=== PATIENT | female | born 1935 | race Caucasian/White ===

== ENCOUNTER 2020-02-05 20:11 | Inpatient (IN) | payer MEDICARE, OTHER ==
[2020-02-05] MEDS ORDERED: methylPREDNISolone Sod Succ/PF 125 MG/2 ML VIAL ONE (20:28)
[2020-02-05] MEDS ORDERED: Magnesium 2 GM/50 ML BAG (IN WATER) ONE (20:28)
[2020-02-05] MEDS ORDERED: Albuterol Sulfate 2.5 mg/3 ml Neb ONE ×2 (20:35→20:36)
[2020-02-05 20:53] LABS: Actual Bicarbonate (HCO3a) 27.1 mEq/L (22-28); Analyzer IN Cardio ER; Base Excess (BEa) 0.2 mEq/L (-2.0 to +3.0); CO2 Tension 51.8 mmHg (35.0-45.0); Calcium, Ionized (arterial) 1.27 mmol/L (1.12-1.30); Carboxyhemoglobin (COHb) 0.3 gm% (0.0-3.0); Hemoglobin (Hb) 15.9 g/dL (12.0-16.0); O2 Tension (PaO2), arterial 162.6 mmHg (> 60.0); Potassium - ABG Lab 4.42 mmol/L (3.70-5.30); pH, Arterial 7.34 (7.35-7.45)
[2020-02-05 20:57] LABS: Puncture Site RR
[2020-02-05 21:13] LABS: #Basophils 0.1 thou/uL (0.0-0.2); #Eosinphils 0.1 thou/uL (0.0-0.7); #Lymphocytes 2.4 thou/uL (1.20-3.40); #Monocytes 0.9 thou/uL (0.11-0.59); #Neutrophils 11.2 thou/uL (1.40-6.50); %Basophils 0.5 % (0.0-1.0); %Eosinophils 0.4 % (0.0-10.0); %Lymphocytes 16.3 % (21.0-51.0); %Neutrophils 76.9 % (42.0-75.0); Hemoglobin 16.2 g/dL (12.0-16.0); Mean Corpuscular HGB CONC 33.1 g/dL (32.0-36.0); Mean Corpuscular Volume 93.6 fL (78.0-98.0); Mean Platelet Volume 7.7 fL (7.4-10.4); Platelet Count 272 thou/uL (130-400); RBC Distribution Width 12.8 % (11.5-14.5); Red Blood Cell (RBC) Count 5.22 mill/uL (4.20-5.40); White Blood Cell (WBC) Count 14.6 thou/uL (4.8-10.8)
--- NOTE | 2020-02-05 21:15 | RAD ---
Chest AP view INDICATION: Covid positive disease with hypoxia COMPARISON: None FINDINGS: Lungs: There is bilateral peripheral groundglass airspace opacities at right upper lobe left upper l obe and left lower lobe suspicious for pneumonia. Cardiac silhouette: There is mild cardiomegaly. Pulmonary vasculature: Normal Pleural spaces: No pleural effusion or pneumothorax is demonstrated. Upper abdomen: No abnormality seen. Osseous structures: There is scattered degenerative and osteoarthritic change present. Additional findings: There are calcified lymph nodes within both hilar regions. IMPRESSION: Bilateral pneumonia. Mild cardiomegaly.
[2020-02-05 21:29] LABS: ALT (SGPT) 49 U/L (8-55); AST (SGOT) 78 U/L (5-34); Albumin 3.4 g/dL (3.4-4.8); Alkaline Phosphatase 122 U/L (40-110); Anion Gap 18 mmol/L (10-20); BUN (Urea Nitrogen) 25 mg/dL (9.8-20.1); Bilirubin, Total 0.2 mg/dL (0.2-1.2); Calc. Creatinine Clearance 0 mL/min (70-130); Calcium 9.4 mg/dL (7.8-10.44); Carbon Dioxide 25 mmol/L (23-31); Chloride 96 mmol/L (98-107); Estimated GFR-MDRD 58; Globulin 4.9 g/dL (2.4-3.5); Glucose 219 mg/dL (83-110); Potassium 4.6 mmol/L (3.5-5.1); Protein, Total 8.3 g/dL (6.0-8.3); Sodium 134 mmol/L (136-145)
[2020-02-05] MEDS ORDERED: cefTRIAXone\\ROCEPHIN 2 GM VIAL ONE (21:33)
[2020-02-05] MEDS ORDERED: Azithromycin 500 MG VIAL ONE (21:33)
--- NOTE | 2020-02-05 22:42 | PDOC.FPRHP ---
- History of Present Illness Chief Complaint: shortness of breath History of Present Illness: Patient presents with Shortness of breath from [facility]. No diarrhea/N/V. States she has decreased appetite. Reports difficulty breathing today. Denies fever today. Per report, patient tested + for COVID 7 days ago at [place]. History is difficult to obtain due to patient being on bipap. ED Course: 1000ml IV NS, 2g IV rocephin, 500mg IV azithro, 2g Mg, 10mg albuterol - Allergies/Adverse Reactions Allergies Allergy/AdvReac Type Severity Reaction Status Date / Time levofloxacin [From Levaquin] Allergy Unverified 02/05/20 23:25 nitrofurantoin Allergy Unverified 02/05/20 23:25 shellfish derived Allergy Unverified 02/05/20 23:25 - History PMHx: SVT, hypothyroidism, HLD, HTN, dementia, emphysema PSHx: unobtainable FHx: unobtainable Social: unobtainable - Review of Systems General: reports: weight/appetite/sleep changes, fatigue. denies: fever/chills, night sweats Eyes: denies: vision changes ENT: reports: nasal congestion. denies: rhinorrhea Respiratory: reports: cough, congestion, shortness of breath, exercise intolerance Cardiovascular: denies: chest pain, palpitation, edema Gastrointestinal: denies: nausea, vomiting, diarrhea, constipation, abdominal pain Skin: denies: rashes Musculoskeletal: denies: pain, tenderness, swelling Neurological: reports: weakness - Vital signs BP: 107/78, MAP: 87, Pulse: 109, Resp: 33, O2 sat: 96 on (CPAP), Weight 63.5kg - Physical Exam -Constitutional: mild distress, elderly F HEENT: normocephalic and atraumatic, EOMI -HEENT: MM mildly dry, difficulty hearing Neck: supple, FROM, trachea midline Chest: no-tender to palpation, no lesions Heart: RRR, normal S1/S2, no murmurs/rubs/gallops, pulses present -Heart: trace edema -Lungs: rales/rhonchi heard on anterior chest Musculoskeletal: normal structure, normal tone Neurological: no focal deficit Skin: no rash/lesions, good turgor, capillary refill <2 seconds FMR H&P: Results - Labs Result Diagrams: 02/05/20 20:54 02/05/20 20:54 Lab results: WBC 14.6 thou/uL (4.8-10.8) H 02/05/20 20:54 Hgb 16.2 g/dL (12.0-16.0) H 02/05/20 20:54 Hct 48.9 % (36.0-47.0) H 02/05/20 20:54 MCV 93.6 fL (78.0-98.0) 02/05/20 20:54 Plt Count 272 thou/uL (130-400) 02/05/20 20:54 Neutrophils % 76.9 % (42.0-75.0) H 02/05/20 20:54 ABG pH 7.34 (7.35-7.45) L 02/05/20 20:49 ABG pCO2 51.8 mmHg (35.0-45.0) H 02/05/20 20:49 ABG pO2 162.6 mmHg (> 60.0) H 02/05/20 20:49 Sodium 134 mmol/L (136-145) L 02/05/20 20:54 Potassium 4.6 mmol/L (3.5-5.1) 02/05/20 20:54 Chloride 96 mmol/L (98-107) L 02/05/20 20:54 Carbon Dioxide 25 mmol/L (23-31) 02/05/20 20:54 BUN 25 mg/dL (9.8-20.1) H 02/05/20 20:54 Creatinine 0.92 mg/dL (0.6-1.1) 02/05/20 20:54 Glucose 219 mg/dL (83-110) H 02/05/20 20:54 Lactic Acid 4.3 mmol/L (0.5-2.2) H* 02/05/20 20:54 Calcium 9.4 mg/dL (7.8-10.44) 02/05/20 20:54 Total Bilirubin 0.2 mg/dL (0.2-1.2) 02/05/20 20:54 AST 78 U/L (5-34) H 02/05/20 20:54 ALT 49 U/L (8-55) 02/05/20 20:54 Alkaline Phosphatase 122 U/L (40-110) H 02/05/20 20:54 B-Natriuretic Peptide 93.4 pg/mL (0-100) 02/05/20 20:54 Serum Total Protein 8.3 g/dL (6.0-8.3) 02/05/20 20:54 Albumin 3.4 g/dL (3.4-4.8) 02/05/20 20:54 - Radiology Interpretation Chest x-ray Status: image reviewed by me (bilateral PNA, mild cardiomegaly), report reviewed by me FMR H&P: A/P - Plan Sepsis and Acute Hypoxic Respiratory Failure 2/2 COVID PNA Hx of SVT HLD HTN Hypothyroidism Code: DNAR Diet: clears Case discussed with Dr. Pacheco. FMR H&P: Upper Level - Plan Date/Time: 02/05/202240 I, Gretta Hutchison MD, have evaluated this patient and agree with findings/plan as outlined by international project engineer resident. Pertinent changes/additions are listed here. This is an 84 yo F with PMH of SVT, hypothyroidism, HTN, emphysema who presents to the ER from [place] with CC of SOB. She was COVID + 7 days ago. She has not previously been requiring O2. She denies any fever today. She reports breathing somewhat improved on the bipap but not too much. Difficult to obtain full history due to patient being on Bipap and difficult hearing. Per daughter, she started with symptoms last Thursday (01/27). VS: patient was tachycardic, tachypneic. Afebrile. pH showed pH 7.34, Co2 51.8, O2 162.6. WBC 14.6, N 76, L Per report she was satting in the 70s on RA. BP has been stable. On PE, patient had some accessory muscle use, rales and rhonchi ascultated b/l anterior chest, tachycardic, no murmurs, trace edema b/l LE. Will admit patient to IMCU for Sepsis and Acute Hypoxic Resp Failure 2/2 COVID PNA. Will continue decadron, azithro. Lovenox 40mg BID. Will give conv plasma. Morphine PRN for air hunger. Tylenol PRN for fever. COVID labs pending including, procal, ferritin, LDH, Ddimer, and CRP. Continue on Bipap, will try to ween as tolerated. Consult pulm/ID in the AM. Consider remdesivir. Will consult palliative care for family support and goals of care. Patient states she is DNAR. Will continue medications for chronic conditions. Dispo: admit IMCU, inpatient. Prognosis guarded. Diet: clears Code: DNAR per patient PCP: Romulo HATHAWAY (CC) Case discussed with Dr. Pacheco Addendum - Attending - Attending Attestation Date/Time: 02/05/20 [id number] I personally evaluated the patient and discussed the management with Dr. Hutchison/Sreekanth I agree with the History, Examination, Assessment and Plan documented above with any addition or exceptions noted below. See my dictated H&P for details. Doc #[id number]
[2020-02-05] MEDS ORDERED: Ondansetron PF 4 MG/2 ML Vial IVP PRN (23:20)
[2020-02-05] MEDS ORDERED: Acetaminophen 325 MG TAB PO PRN (23:20)
[2020-02-05] MEDS ORDERED: Acetaminophen 650 MG Suppository PR PRN (23:20)
[2020-02-05] MEDS ORDERED: Ondansetron ODT 4 MG TAB PO PRN (23:20)
[2020-02-05 23:56] LABS: Hemoglobin A1c 5.4 % (4.0-6.0)
[2020-02-06] MEDS ORDERED: Morphine 2 MG/ML SYRINGE SLOW IVP SCH
[2020-02-06 00:04] LABS: Lactic Acid 2.7 mmol/L (0.5-2.2)
[2020-02-06] MEDS ORDERED: Morphine 2 MG/ML VIAL SLOW IVP PRN (00:15)
--- NOTE | 2020-02-06 00:51 | HP ---
CHIEF COMPLAINT: Shortness of breath. HISTORY OF PRESENT ILLNESS: I have reviewed all documentation and discussed the care and management of this patient with Dr. Hutcihson and Dr. Stack. I agree with all documentation and their history and physical unless otherwise stated in the following attestation. In summary, Ms. Montes is a pleasant 84-year-old female, who presented from [facility] with a chief complaint of worsening shortness of breath. Per report, she was diagnosed with COVID-19 approximately seven days ago. She stated that she had been feeling progressively more short of breath throughout today prompting her to come to the emergency room for evaluation. Upon arrival to the ER, she was noted to be hypoxic and hypoxemic with the lowest recorded oxygen saturation of 70% on her home oxygen of 4 L. This improved to 95% on a non-rebreather en route. The patient has difficulty hearing and communicating on the BiPAP, so history is somewhat limited. She denied fever today and other symptoms. She also stated that she was a DNR and would not want to be intubated or have chest compressions under any circumstances. The resident team is currently calling her family to follow up with this and verify these are her wishes. Please see present note for past medical, surgical, social, family, allergies, and medication list. FOCUSED PHYSICAL EXAMINATION: VITAL SIGNS: Blood pressure 107/78, pulse is 109 with a maximum pulse of 132, respiratory rate 33, oxygen saturation 96% on BiPAP with settings of 14/5 and an FiO2 of 80%. Her weight is 63 kg. GENERAL: Alert and oriented, appears to be decisional at this time. Moderate respiratory distress. CARDIOVASCULAR: Normal rate, regular rhythm. No murmurs, rubs, or gallops. RESPIRATORY: Diffuse upper airway sounds and BiPAP sounds noted. NEUROLOGIC: No gross focal deficits. EXTREMITIES: No cyanosis or edema. PERTINENT LABORATORY FINDINGS: AST 78, ALT 49, alkaline phosphatase 122, glucose 219, creatinine 0.92, estimated GFR 58. Lactic acid 4.3. White blood cell count 14.6 with a left shift, neutrophils at 76.9% and a mild lymphopenia at 2.4. ABG showed pH of 7.34, pCO2 of 51.8, and pO2 of 162.6. IMAGING: Chest x-ray, bilateral interstitial pneumonia. EKG, sinus tachycardia. No overt ST changes appreciated. Rate 135, normal intervals, QTc interval 423. ASSESSMENT: Ms. Montes is a pleasant 84-year-old woman with a history of emphysema, currently requiring 4 L nasal cannula of oxygen at baseline. She presented after being diagnosed with COVID-19 two to three days ago. She is approximately day 7 of her disease course. She has had an increased requirement in her oxygen and is now requiring BiPAP. 1. Acute hypoxic hypercapnic respiratory failure secondary to COVID-19. I will continue BiPAP, start dexamethasone. Remdesivir and convalescent plasma have been ordered. We will plan to consult Pulmonology tomorrow morning. Continue to trend LFTs while on remdesivir. I will order a baseline D-dimer and start therapeutic anticoagulation with Lovenox due to severity of her illness, Pulmonology and ID consult tomorrow. Continue BiPAP. Patient expressed that she does not want to be intubated under any circumstances, we will verify this with her family. 2. Sepsis secondary to COVID-19, general IV fluids. Continue supportive measures. Blood pressure is not warranting pressors at this point. 3. Chronic obstructive pulmonary disease. Continue supportive care. We will place consultation tomorrow morning. If the patient continues to decompensate and it appears that only mechanical ventilation would sustain her life, we will discuss hospice with the patient and the family. 4. Chronic medical problems per resident notes. DISPOSITION: Estimated length of stay inpatient IMCU greater than two midnights. Approximately 40 minutes of critical care time were spent in the care of this patient by myself. Job ID: [id number] MTDD
[2020-02-06 04:00] LABS: #Lymphocytes 0.9 thou/uL (1.20-3.40); #Monocytes 0.7 thou/uL (0.11-0.59); #Neutrophils 11.9 thou/uL (1.40-6.50); %Eosinophils 0.3 % (0.0-10.0); %Lymphocytes 6.7 % (21.0-51.0); %Monocytes 5.2 % (0.0-10.0); %Neutrophils 87.9 % (42.0-75.0); Hemoglobin 15.2 g/dL (12.0-16.0); Mean Corpuscular HGB CONC 33.1 g/dL (32.0-36.0); Mean Corpuscular Hemoglobin 30.1 pg (27.0-31.0); Mean Corpuscular Volume 90.8 fL (78.0-98.0); Mean Platelet Volume 7.9 fL (7.4-10.4); Platelet Count 234 thou/uL (130-400); RBC Distribution Width 12.7 % (11.5-14.5); Red Blood Cell (RBC) Count 5.05 mill/uL (4.20-5.40); White Blood Cell (WBC) Count 13.5 thou/uL (4.8-10.8)
[2020-02-06 04:30] LABS: ALT (SGPT) 62 U/L (8-55); AST (SGOT) 101 U/L (5-34); Albumin 3.2 g/dL (3.4-4.8); Alkaline Phosphatase 109 U/L (40-110); Anion Gap 15 mmol/L (10-20); BUN (Urea Nitrogen) 26 mg/dL (9.8-20.1); Bilirubin, Total 0.2 mg/dL (0.2-1.2); Calc. Creatinine Clearance 0 mL/min (70-130); Calcium 8.9 mg/dL (7.8-10.44); Carbon Dioxide 23 mmol/L (23-31); Chloride 99 mmol/L (98-107); Estimated GFR-MDRD 67; Globulin 4.5 g/dL (2.4-3.5); Glucose 155 mg/dL (83-110); Potassium 4.3 mmol/L (3.5-5.1); Protein, Total 7.7 g/dL (6.0-8.3); Sodium 133 mmol/L (136-145)
--- NOTE | 2020-02-06 05:36 | PDOC.FM ---
- Subjective Subjective: Patient doing better this morning, has transitioned off of the BiPAP onto NC. Reports chronic dyspnea 2/2 alpha-1 antitrypsin deficiency. - Objective Result Diagrams: 02/06/20 03:38 02/06/20 03:38 Phys Exam - Physical Examination in mild respiratory distress HEENT: moist MMs, sclera anicteric Neck: supple, full ROM ronchi diffuse throughout, using accesory muscles regular rhythm, tachycardic rate Gastrointestinal: soft, non-tender Musculoskeletal: no edema, pulses present Neurological: non-focal, moves all 4 limbs Psychiatric: normal affect Skin: no rash, normal turgor Dx/Plan (1) Acute respiratory failure with hypoxia Code(s): J96.01 - ACUTE RESPIRATORY FAILURE WITH HYPOXIA Status: Acute (2) Pneumonia due to COVID-19 virus Code(s): U07.1 - COVID-19; J12.89 - OTHER VIRAL PNEUMONIA Status: Acute (3) Sepsis Code(s): A41.9 - SEPSIS, UNSPECIFIED ORGANISM Status: Acute - Plan Plan: Patient is an 84F with PMHx of hypothyroidism, HLD, HTN, dementia, emphysema that is admitted for: #Sepsis and Acute Hypoxic Respiratory Failure 2/2 COVID PNA -Patient was Satting 70s on RA at presentation, put on BiPAP, weaned to 4L NC satting 95% WBC 14.6, afebrile, tachycardic and tachypnic - Continue decadron - Continue Azithromycin, add rocephin due to procal of 3.13 - Lovenox 40mg BID - Convalescent plasma given - Morphine prn for air hunger, Tylenol prn for fever - Covid labs: procal 3.13, ddimer 3.16>2.66, LDH 441, CRP 2.10; pending ferritin - Patient de-escalated from biPAP to 4L NC overnight - consulted , pulmonology, this am; appreciate recs - consider remdesivir - palliative care consulted for family support and goals of care - patient DNAR #Hx of SVT EKG sinus tachycardia - tele monitoring #Hx Emphysema 2/2 alpha-1 antitrypsin deficiency - aware - continue home spiriva #HLD - restart home medications #HTN - restart home meds #Hypothyroidism - restart home medications Code: DNAR Diet: clears DVT ppx: lovenox 40mg BID Addendum - Attending - Attending Attestation Date/Time: 02/06/20 9498 I personally evaluated the patient and discussed the management with Dr. Loredo I agree with the History, Examination, Assessment and Plan documented above with any addition or exceptions noted below - Patient feeling better. Decreased SOB while on BiPap. Afebrile BP 110/81 P101 RR24 97% General- sitting up in bed in NAD. Speaking comfortably with BiPap. Lungs- CTA b/l CV- tachycardic, no murmur Abd- soft nt/nd, Ext- no edema. Labs: cutjifso=9604 ->1470, PAR=232->441, D-dimer= 3.16 ->2.66, CRP= 1.42->2.10 A/P: 1) Acute hypoxic respiratory failure secondary to COVID pneumonia- dx'd 7 days ago but no increased O2 requirement till last night. Initially started on BiPap and now weaned to HFNC 60L/60%. Received convalscent plasma 02/05. Continue decadron, lovenox, rocephin and azithromycin. Family requesting transfer to [facility] with her physicians. Patient accepted - accepting physician requested CTA prior to transfer and order placed. 2) Hypothyroidism - no records available from assisted living. Call placed to confirm home medications. Medication reconciliation pending. 3) Emphysema secondary to alpha1 antitrypsin deficiency - continue to monitor resp status. Baseline home O2 requirement is 4L NC. 4) HTN - restarted on home meds
[2020-02-06] MEDS ORDERED: Azithromycin 250 MG TAB ONE (08:33)
[2020-02-06] MEDS ORDERED: Dexamethasone 10 MG/ML VIAL ONE (08:33)
[2020-02-06] MEDS ORDERED: Enoxaparin Sodium 40 MG/0.4 ML SYRINGE ONE (08:35)
[2020-02-06] MEDS ORDERED: Non-Formulary Item 1 EACH (Tiotropium Bromide [Spiriva] 18 MCG Cap.W.Dev) INH SCH (09:00)
[2020-02-06] MEDS ORDERED: Metoprolol Tartrate 25 MG TAB PO SCH (09:00)
[2020-02-06] MEDS ORDERED: Dexamethasone 4 mg/ml Vial SLOW IVP SCH ×2 (09:00→10:00)
[2020-02-06] MEDS ORDERED: Enoxaparin Sodium 40 MG/0.4 ML SYRINGE SC SCH ×2 (09:00)
[2020-02-06] MEDS ORDERED: Azithromycin 250 MG TAB PO SCH (09:00)
[2020-02-06] MEDS ORDERED: Albuterol 200 PUFF (6.7GM INHALER) INH PRN (12:33)
[2020-02-06] MEDS ORDERED: Ipratropium Oral Inhaler INH SCH (13:00)
[2020-02-06] MEDS ORDERED: Ipratropium Bromide 2.5 ml Neb NEB SCH (13:00)
[2020-02-06] MEDS ORDERED: Iopamidol-370 76% 500 ML 1 ML ONE (13:53)
--- NOTE | 2020-02-06 16:32 | PDOC.FMACP ---
Advance Care Planning - Problem (1) Palliative care encounter Status: Acute Code(s): Z51.5 - ENCOUNTER FOR PALLIATIVE CARE (2) Acute respiratory failure with hypoxia Status: Acute Code(s): J96.01 - ACUTE RESPIRATORY FAILURE WITH HYPOXIA (3) Pneumonia due to COVID-19 virus Status: Acute Code(s): U07.1 - COVID-19; J12.89 - OTHER VIRAL PNEUMONIA (4) Sepsis Status: Acute Code(s): A41.9 - SEPSIS, UNSPECIFIED ORGANISM - Note Participants: patient, palliative care Summary: Palliative Care addressed Advanced Care Planning. The diagnosis, prognosis and goals of care were discussed. Appropriate forms and documentation to accomplish the goals of care were discussed. All questions were answered. Ms Montes confirmed she desires to be a DNAR. Attempting to contact patient desired surrogate decision maker. The Palliative Care Team will be engaged to assist with completion of MPOA and further address Goal of Care. Please refer to Palliative Care notes in note section. Time Spent (mins): 15
--- NOTE | 2020-02-06 16:35 | CT ---
CT PULMONARY ANGIOGRAM WITH IV CONTRAST AND 3D POSTPROCESSING: Date: 02/06/2020 HISTORY: Shortness of breath. COVID-19 positive. FINDINGS: There is good contrast opacification of the pulmonary arterial vasculature. There is suggestion of a small filling defect in the right lower lobe branch suspicious for pulmonary embolism. There are vascular calcifications without evidence of aneurysmal dilatation of the thoracic aorta. No pleural or pericardial effusions are seen. There are patchy opacities in the lungs bilaterally. A ca lcified granuloma is seen in the left lower lobe. Upper abdominal tomograms demonstrate calcified gra nulomas in the liver and spleen. There are degenerative changes in the spine. IMPRESSION: Findings suggestive of a small embolus in the right lower lobe pulmonary arterial branch. Discussed over the telephone with ER physician, Dr. Ramin Abdul, at 1600 hours. CODE CR.
[2020-02-06] MEDS ORDERED: Famotidine/PF 20 mg/2ml Vial SLOW IVP SCH (21:00)
[2020-02-06] MEDS ORDERED: cefTRIAXone\\ROCEPHIN 1 GM in Sodium Chloride 0.9% 100 ML IVPB SCH (22:00)
[2020-02-07] MEDS ORDERED: Dexamethasone 4 mg/ml Vial SLOW IVP SCH (09:00)
[2020-02-07] MEDS ORDERED: Enoxaparin Sodium 60 MG/0.6 ML SYRINGE SC SCH (21:00)
--- NOTE | 2020-02-08 02:56 | DIS ---
DATE OF ADMISSION: 02/05/2020 DATE OF DISCHARGE: 02/06/2020 RESIDENT: Yuko Loredo MD ADMITTING ATTENDING: Jose Pacheco MD DISCHARGE ATTENDING: Sonali Chowdhury MD CONSULTS: Pulmonology, . PROCEDURES: None. PRIMARY DIAGNOSIS: Sepsis and acute hypoxic respiratory failure due to COVID-19 pneumonia. SECONDARY DIAGNOSES: History of SVT, history of emphysema due to alpha-1 antitrypsin deficiency, hyperlipidemia, hypertension, hypothyroidism. DISCHARGE MEDICATIONS: 1. Tylenol 650 mg p.o. q.4 hours p.r.n. 2. Albuterol sulfate two puffs inhaled q.4 hours p.r.n. 3. Azithromycin 250 mg p.o. daily. 4. Rocephin 1 g p.o. daily. 5. Decadron 6 mg IV daily. 6. Lovenox 60 mg subcu b.i.d. 7. Famotidine 20 mg IV b.i.d. 8. One puff ipratropium inhaled q.6 hours. 9. Metoprolol tartrate 25 mg p.o. b.i.d. 10. Morphine 1 mg IV q.1 hour p.r.n. 11. . 12. Zofran 4 mg IV q.6 hours p.r.n. DISCONTINUED MEDICATIONS: Withhold medication, amlodipine 2.5 p.o. daily. HISTORY OF PRESENT ILLNESS/HOSPITAL COURSE: The patient is an 84-year-old female with a past medical history of emphysema due to alpha-1 antitrypsin deficiency, SVT, hyperlipidemia, hypertension, hypothyroidism, who presented to the ER from [facility] after she has had COVID for the last seven days and started to have dyspnea. Upon presentation to the ER, she was placed on BiPAP. She was transferred over to nasal cannula and was doing well but then began to have more dyspnea and tachypnea and so was transferred back to BiPAP and this was de-escalated to high-flow nasal cannula. The patient was admitted late at night and the next morning, her family had decided that she wanted to be transferred over to the [facility] due to her insurance, so this process was started. She was placed on both azithromycin and Rocephin due to an elevated procalcitonin. She had elevated COVID labs including a ferritin of 1470, lactate dehydrogenase of 441, CRP of 2.1, and a D-dimer of 3.16. Before discharge, she was evaluated by Palliative Care and discussed patient's wishes to be DNAR, and that the patient would like to be comfortable. She was found to be in stable condition before the transfer over to the [facility]. DISPOSITION: Guarded. DISCHARGE INSTRUCTIONS: 1. Location: [facility]. 2. Diet: Heart healthy. 3. Activity: To be determined. 4. Follow up with PCP after discharge from the [facility]. Job ID: [id number] MTDD
--- NOTE | 2020-02-11 16:41 | EKG ---
Test Reason : Blood Pressure : / mmHG Vent. Rate : 135 BPM Atrial Rate : 135 BPM P-R Int : 146 ms QRS Dur : 074 ms QT Int : 282 ms P-R-T Axes : 031 -15 068 degrees QTc Int : 423 ms Sinus tachycardia Possible Inferior infarct , age undetermined Anterior infarct , age undetermined Abnormal ECG Confirmed by LM MONTENEGRO, KELLEE ([id number]), website/blog editor FRANCISCO ADAMS ([id number]) on 02/11/2020 4:41:22 PM Referred By: Confirmed By:KELLEE AMATO MD
== END 2020-02-06 16:51 | disposition short-term general hospital (02) | DRG 871 ==
LOC: ERS 20:11 → ERHOLD 22:38
PROVIDERS: ADMIT Family Medicine; ATTEND Family Medicine
PROC: 8E0ZXY6 Isolation (ICD-10-PCS; principal; 2020-02-05)
PROC: 5A09357 Assistance with Respiratory Ventilation, Less than 24 Consecutive Hours, Continuous Positive Airway Pressure (ICD-10-PCS; 2020-02-05)
PROC: XW13325 Transfusion of Convalescent Plasma (Nonautologous) into Peripheral Vein, Percutaneous Approach, New Technology Group 5 (ICD-10-PCS; 2020-02-06)
DX: A41.89 Other specified sepsis (principal); U07.1 COVID-19; J12.89 Other viral pneumonia; J96.01 Acute respiratory failure with hypoxia; Z51.5 Encounter for palliative care; Z66 Do not resuscitate; E03.9 Hypothyroidism, unspecified; E78.5 Hyperlipidemia, unspecified; J43.9 Emphysema, unspecified; Z88.1 Allergy status to other antibiotic agents; Z79.890 Hormone replacement therapy; Z79.82 Long term (current) use of aspirin; Z79.899 Other long term (current) drug therapy; E88.01 Alpha-1-antitrypsin deficiency
CPT/HCPCS: 36415; 36430; 71045; 71275; 80053; 82728; 82805; 83036; 83605; 83615; 83880; 84145; 84443; 85025; 85379; 86140; 86850; 86900; 86901; 87040; 87077; 87149; 87186; 93005; 94644; 94660; 94760; J0456; J0696; J1100; J1650; J2930; J3475; J7611; J7620; P9017; Q9967